=== PATIENT | male | born 1990 | race Caucasian/White ===

== ENCOUNTER 2017-08-26 09:12 | Emergency (ER) | payer OTHER ==
[~2017-08-26] VITALS: Ht 182.9 cm; Wt 81.7 kg
[~2017-08-26 09:12] MED LIST: Robaxin-750750 MG PO
[2017-08-26] MEDS ORDERED: AMIT25 PO (09:23)
[2017-08-26] MEDS ORDERED: Hydroxyzine HCl50 MG PO (09:23)
[2017-08-26] MEDS ORDERED: PRAZ1 PO (09:24)
[2017-08-26] MEDS ORDERED: IBUP800 PO (09:24)
[2017-08-26 10:08] LABS: BASOPHILS ABSOLUTE AUTO 0.04 K/mm3 (0.00-0.23); BASOPHILS PERCENT AUTO 1 % (0-2); EOSINOPHILS PERCENT AUTO 4 % (0-6); Hematocrit 37.9 % (37.0-53.0); IMMATURE GRAN ABSOLUTE AUTO 0.02 K/mm3 (0.00-0.10); IMMATURE GRAN PERCENT AUTO 0 % (0-1); LYMPHOCYTES PERCENT AUTO 24 % (21-46); MONOCYTES PERCENT AUTO 13 % (4-13); Mean Corpuscular HGB 29.8 pg (26.0-34.0); Mean Corpuscular HGB Conc 31.7 g/dL (31.5-36.5); Mean Corpuscular Volume 94 fL (80-100); Mean Platelet Volume 8.9 fL (9.1-12.4); NEUTROPHILS ABSOLUTE AUTO 4.19 K/mm3 (1.96-9.15); NEUTROPHILS PERCENT AUTO 59 % (41-73); Platelet Count 360 K/mm3 (150-400); RDW Coefficient Variation 13.9 % (11.7-14.2); RDW Standard Deviation 48.3 fL (35.1-46.3); Red Blood Cell Count 4.03 M/mm3 (4.30-5.90); White Blood Cell Count 7.15 K/mm3 (4.00-11.30)
[2017-08-26 10:33] LABS: Alanine Aminotransfer (ALT/SGP 41 U/L (12-78); Albumin, Blood 3.5 g/dL (3.4-5.0); Albumin/Globulin Ratio 1.1 (0.8-1.8); Alk Phos 81 U/L (50-136); Anion Gap 5 mmol/L (6-16); Aspartate Aminotrans (AST/SGOT 36 U/L (12-37); Bilirubin, Total 0.2 mg/dL (0.1-1.0); Blood Urea Nitrogen 10 mg/dL (8-24); Bun/Creatinine Ratio 11.5 (12.0-20.0); CO2, Blood 32 mmol/L (21-32); Calcium, Blood 9.1 mg/dL (8.5-10.1); Chloride, Blood 104 mmol/L (98-108); Creatinine, Blood 0.87 mg/dL (0.60-1.20); Globulin, Blood 3.2 g/dL (2.2-4.0); Glomerular Filtration Rate >60 (60-); Glucose, Blood 86 mg/dL (70-99); Potassium, Blood 4.3 mmol/L (3.5-5.5); Sodium, Blood 141 mmol/L (136-145); Total Protein, Blood 6.7 g/dL (6.4-8.2); Troponin I <0.015 ng/mL (0.000-0.040)
[2017-08-26] MEDS ORDERED: Lasix20 MG PO (10:56)
[2017-08-26] MEDS ORDERED: Monodox100 MG PO (10:56)
== END 2017-08-26 11:38 | disposition home or self-care (01) ==
LOC: ER 09:12
PROVIDERS: Emergency Medicine
DX: R60.0 Localized edema (principal); F15.11 Other stimulant abuse, in remission; F11.11 Opioid abuse, in remission; N34.2 Other urethritis; Z79.899 Other long term (current) drug therapy; Z87.891 Personal history of nicotine dependence
CPT/HCPCS: 36415; 71046; 80053; 83880; 84484; 85025; 93005; 93010; 96374; 99283; J1940

== ENCOUNTER 2017-09-14 14:04 | Emergency (ER) | payer OTHER ==
[~2017-09-14] VITALS: Ht 182.9 cm; Wt 79.4 kg
[~2017-09-14 14:04] MED LIST changes: +AMIT25 PO; +Hydroxyzine HCl50 MG PO; +IBUP800 PO; +Lasix20 MG PO; +Monodox100 MG PO; +PRAZ1 PO
[2017-09-14] MEDS ORDERED: TRAZ100 PO (14:25)
[2017-09-14] MEDS ORDERED: COMPRESSION STOCKING (14:37)
[2017-09-14] MEDS ORDERED: Mobic15 MG PO (14:37)
== END 2017-09-14 14:44 | disposition home or self-care (01) ==
LOC: ER 14:04
DX: M25.561 Pain in right knee (principal); M25.562 Pain in left knee; Z79.899 Other long term (current) drug therapy; Z87.891 Personal history of nicotine dependence
CPT/HCPCS: 99282

== ENCOUNTER 2017-10-13 09:27 | Emergency (ER) | payer OTHER ==
[~2017-10-13] VITALS: Ht 182.9 cm; Wt 74.6 kg
[~2017-10-13 09:27] MED LIST changes: +COMPRESSION STOCKING; +Mobic15 MG PO; +TRAZ100 PO
== END 2017-10-13 10:07 | disposition home or self-care (01) ==
LOC: ER 09:27
DX: J06.9 Acute upper respiratory infection, unspecified (principal); Z79.899 Other long term (current) drug therapy; Z87.442 Personal history of urinary calculi; Z87.891 Personal history of nicotine dependence
CPT/HCPCS: 99282

== ENCOUNTER 2017-10-31 14:16 | Emergency (ER) | payer OTHER ==
[~2017-10-31] VITALS: Ht 182.9 cm; Wt 77.1 kg
== END 2017-10-31 15:34 | disposition home or self-care (01) ==
LOC: ER 14:16
DX: S60.221A Contusion of right hand, initial encounter (principal); Z79.899 Other long term (current) drug therapy; Z87.442 Personal history of urinary calculi; Z87.891 Personal history of nicotine dependence; W18.30XA Fall on same level, unspecified, initial encounter
CPT/HCPCS: 73130; 99283

== ENCOUNTER 2019-04-27 23:24 | Emergency (ER) | payer OTHER ==
[~2019-04-27] VITALS: Ht 182.9 cm; Wt 72.6 kg
[2019-04-28 01:01] LABS: BASOPHILS ABSOLUTE AUTO 0.05 K/mm3 (0.00-0.23); BASOPHILS PERCENT AUTO 1 % (0-2); EOSINOPHILS ABSOLUTE AUTO 0.19 K/mm3 (0.00-0.68); EOSINOPHILS PERCENT AUTO 2 % (0-6); Hematocrit 40.7 % (37.0-53.0); Hemoglobin 13.3 g/dL (13.5-17.5); IMMATURE GRAN ABSOLUTE AUTO 0.03 K/mm3 (0.00-0.10); IMMATURE GRAN PERCENT AUTO 0 % (0-1); LYMPHOCYTES ABSOLUTE AUTO 1.86 K/mm3 (0.84-5.20); LYMPHOCYTES PERCENT AUTO 20 % (21-46); MONOCYTES ABSOLUTE AUTO 0.64 K/mm3 (0.16-1.47); MONOCYTES PERCENT AUTO 7 % (4-13); Mean Corpuscular HGB 30.5 pg (26.0-34.0); Mean Corpuscular HGB Conc 32.7 g/dL (31.5-36.5); Mean Corpuscular Volume 93 fL (80-100); NEUTROPHILS ABSOLUTE AUTO 6.64 K/mm3 (1.96-9.15); NEUTROPHILS PERCENT AUTO 71 % (41-73); RDW Coefficient Variation 13.7 % (11.7-14.2); RDW Standard Deviation 47.8 fL (35.1-46.3); Red Blood Cell Count 4.36 M/mm3 (4.30-5.90); White Blood Cell Count 9.41 K/mm3 (4.00-11.30)
[2019-04-28 01:03] LABS: Mean Platelet Volume 9.4 fL (9.1-12.4); Platelet Count 287 K/mm3 (150-400)
[2019-04-28 01:16] LABS: Alanine Aminotransfer (ALT/SGP 27 U/L (12-78); Albumin, Blood 4.1 g/dL (3.4-5.0); Albumin/Globulin Ratio 1.1 (0.8-1.8); Alk Phos 70 U/L (50-136); Anion Gap 7 mmol/L (6-16); Aspartate Aminotrans (AST/SGOT 10 U/L (12-37); Bilirubin, Total 0.1 mg/dL (0.1-1.0); Blood Urea Nitrogen 16 mg/dL (8-24); Bun/Creatinine Ratio 19.2 (12.0-20.0); CO2, Blood 30 mmol/L (21-32); Calcium, Blood 9.5 mg/dL (8.5-10.1); Chloride, Blood 108 mmol/L (98-108); Creatinine, Blood 0.83 mg/dL (0.60-1.20); Globulin, Blood 3.7 g/dL (2.2-4.0); Glomerular Filtration Rate >60 (60-); Glucose, Blood 100 mg/dL (70-99); Potassium, Blood 3.9 mmol/L (3.5-5.5); Sodium, Blood 145 mmol/L (136-145); Total Protein, Blood 7.8 g/dL (6.4-8.2)
[2019-04-28 02:17] LABS: Source, Urine Clean Catch
[2019-04-28 02:22] LABS: Bilirubin, Urine Neg (Neg); Blood, Urine 2+ (Neg); Glucose Qualitative, Urine Neg (Neg); Ketones, Urine Neg (Neg); Leukocyte Esterase, Urine Neg (Neg); Nitrite, Urine Neg (Neg); Protein, Urine Neg (Neg); Urobilinogen, Urine NORM (Normal)
[2019-04-28 02:34] LABS: Appearance, Urine Clear (Clear); Bacteria Rare /hpf; Color, Urine Yellow (P-Yellow); Mucus Light ({null, 0-Heavy}); Squamous Epithelial Cells Rare /hpf (Few); White Blood Cells, Urine Rare /hpf (0-5)
[2019-04-28] MEDS ORDERED: ONDA4ODT MM (05:31)
[2019-04-28] MEDS ORDERED: Prilosec Otc20 MG PO (05:31)
[2019-04-28] MEDS ORDERED: Carafate1 GM/10 ML PO (05:31)
== END 2019-04-28 05:53 | disposition home or self-care (01) ==
LOC: ER 23:24
PROVIDERS: Emergency Medicine
DX: R10.11 Right upper quadrant pain (principal); F17.210 Nicotine dependence, cigarettes, uncomplicated; Z87.442 Personal history of urinary calculi
CPT/HCPCS: 76705; 80053; 81001; 83690; 85025; 96374; 99284-25; J2270

== ENCOUNTER 2019-05-13 22:03 | Inpatient (IN) | payer OTHER ==
[~2019-05-13] VITALS: Ht 185.4 cm; Wt 69.2 kg
[~2019-05-13 22:03] MED LIST changes: +Carafate1 GM/10 ML PO; +ONDA4ODT MM; +Prilosec Otc20 MG PO
[2019-05-13 22:57] LABS: BASOPHILS ABSOLUTE AUTO 0.09 K/mm3 (0.00-0.23); BASOPHILS PERCENT AUTO 1 % (0-2); EOSINOPHILS ABSOLUTE AUTO 0.08 K/mm3 (0.00-0.68); EOSINOPHILS PERCENT AUTO 1 % (0-6); Hematocrit 45.1 % (37.0-53.0); Hemoglobin 14.9 g/dL (13.5-17.5); IMMATURE GRAN ABSOLUTE AUTO 0.11 K/mm3 (0.00-0.10); IMMATURE GRAN PERCENT AUTO 1 % (0-1); LYMPHOCYTES ABSOLUTE AUTO 2.05 K/mm3 (0.84-5.20); LYMPHOCYTES PERCENT AUTO 14 % (21-46); MONOCYTES PERCENT AUTO 8 % (4-13); Mean Corpuscular HGB 29.7 pg (26.0-34.0); Mean Corpuscular Volume 90 fL (80-100); Mean Platelet Volume 9.2 fL (9.1-12.4); NEUTROPHILS ABSOLUTE AUTO 11.08 K/mm3 (1.96-9.15); NEUTROPHILS PERCENT AUTO 76 % (41-73); Platelet Count 494 K/mm3 (150-400); RDW Coefficient Variation 14.5 % (11.7-14.2); RDW Standard Deviation 48.4 fL (35.1-46.3); Red Blood Cell Count 5.01 M/mm3 (4.30-5.90); White Blood Cell Count 14.61 K/mm3 (4.00-11.30)
[2019-05-13 23:18] LABS: Albumin/Globulin Ratio 1.1 (0.8-1.8); Bilirubin, Total 0.7 mg/dL (0.1-1.0); Calcium, Blood 10.5 mg/dL (8.5-10.1); Creatinine, Blood 2.37 mg/dL (0.60-1.20); Globulin, Blood 4.5 g/dL (2.2-4.0); Magnesium, Blood 2.9 mg/dL (1.6-2.4); Potassium, Blood 6.8 mmol/L (3.5-5.5); Total Protein, Blood 9.5 g/dL (6.4-8.2)
[2019-05-14 01:30] LABS: Creatine Kinase MB Index 1.2 (0.0-4.0)
[2019-05-14 02:11] LABS: Bun/Creatinine Ratio 20.1 (12.0-20.0); Calcium, Blood 9.4 mg/dL (8.5-10.1); Creatinine, Blood 1.94 mg/dL (0.60-1.20); Potassium, Blood 4.5 mmol/L (3.5-5.5)
[2019-05-14 02:30] LABS: Source, Urine Clean Catch
[2019-05-14 02:33] LABS: Appearance, Urine Clear (Clear); Bilirubin, Urine Neg (Neg); Blood, Urine 1+ (Neg); Color, Urine Amber (P-Yellow); Glucose Qualitative, Urine Neg (Neg); Ketones, Urine 3+ (Neg); Leukocyte Esterase, Urine 1+ (Neg); Nitrite, Urine Neg (Neg); Protein, Urine 1+ (Neg); Urobilinogen, Urine NORM (Normal)
[2019-05-14 02:39] LABS: Bacteria Many /hpf; Calcium Oxalate Crystals Few /hpf; Squamous Epithelial Cells Not Seen /hpf (Few)
[2019-05-14 02:42] LABS: U Amphetamine Screen DETECTED; U Barbituate Screen Not Detected; U Benzodiazapine Screen Not Detected; U Methamphetamine Screen DETECTED
[2019-05-14 02:43] LABS: U Buprenorphine Screen DETECTED; U Cannabinoids Screen Not Detected; U Cocaine Screen Not Detected; U Methadone Screen Not Detected; U Opiates Screen Not Detected; U Oxycodone Screen Not Detected; U Phencyclidine Screen Not Detected; U Propoxyphene Screen Not Detected
[2019-05-14] MEDS ORDERED: SUBOXONE 8 MG-1 EACH SL (05:13)
[2019-05-14 05:14] LABS: Bun/Creatinine Ratio 20.4 (12.0-20.0); Calcium, Blood 9.4 mg/dL (8.5-10.1); Creatinine, Blood 1.67 mg/dL (0.60-1.20); Potassium, Blood 4.8 mmol/L (3.5-5.5)
--- NOTE | 2019-05-14 06:44 | NUR ---
SHIFT SUMMARY NO SIGNIFICANT EVENTS OVERNIGHT. PT IS ALERT AND ORIENTED X 4. PT REPORTS NO ABDOMINAL PAIN SINCE ADMISSION TO ICU, OR NAUSEA. STATES RELIEF FROM PAIN IN HIS LEG/FOOT PAIN. HE IS ON SUBOXONE AFTER DETOXING IN REHAB, STATES HE PLANS TO GET ON METHADONE NEXT WEEK. PT IS ANXIOUS TO LEAVE ICU. HE VOIDED 350ML INTO URINAL, CLOUDY DARKISH YELLOW. NO BM OVERNIGHT. IS IN RECLINDER NEAR BED. THEY ARE HOMELESS, I PUT IN A VIDEO CLERK CONSULT FOR THEM. BED IS LOW AND LOCKED. CALL LIGHT WITHIN REACH.
[2019-05-14 08:33] LABS: Hemoglobin 12.2 g/dL (13.5-17.5); Mean Corpuscular HGB 29.7 pg (26.0-34.0); Mean Corpuscular HGB Conc 33.9 g/dL (31.5-36.5); Mean Corpuscular Volume 88 fL (80-100); Mean Platelet Volume 9.3 fL (9.1-12.4); Platelet Count 315 K/mm3 (150-400); RDW Coefficient Variation 14.8 % (11.7-14.2); RDW Standard Deviation 47.6 fL (35.1-46.3); Red Blood Cell Count 4.11 M/mm3 (4.30-5.90); White Blood Cell Count 8.66 K/mm3 (4.00-11.30)
[2019-05-14 08:57] LABS: Alanine Aminotransfer (ALT/SGP 48 U/L (12-78); Albumin, Blood 3.5 g/dL (3.4-5.0); Alk Phos 80 U/L (50-136); Anion Gap 7 mmol/L (6-16); Aspartate Aminotrans (AST/SGOT 40 U/L (12-37); Bilirubin, Total 0.5 mg/dL (0.1-1.0); Blood Urea Nitrogen 28 mg/dL (8-24); Bun/Creatinine Ratio 20.3 (12.0-20.0); CO2, Blood 24 mmol/L (21-32); Chloride, Blood 106 mmol/L (98-108); Creatinine, Blood 1.38 mg/dL (0.60-1.20); Globulin, Blood 3.5 g/dL (2.2-4.0); Glomerular Filtration Rate >60 (60-); Glucose, Blood 111 mg/dL (70-99); Potassium, Blood 4.7 mmol/L (3.5-5.5); Sodium, Blood 137 mmol/L (136-145)
--- NOTE | 2019-05-14 09:50 | NUR ---
CARE ASSUMED, ASSESSMENT COMPLETED. PT DENIES NAUSEA, SOB AND CHEST PAIN, REPORTS BLE PAIN/SORENESS, STATES HE HAS WALKED A LOT THE PAST FEW DAYS, ATTRIBUTES PAIN TO THIS ACTIVITY. HR 100-110 SIT, OTHER VSS. PT VOIDING CLEAR YELLOW URINE, 675ML OUT AT THIS TIME, NS INFUSING AT 150ML/HR PER ORDERS. PT ALERT AND ORIENTED, SLIGHTLY IRRITABLE AND HYPERACTIVE BUT COOPERATIVE WITH CARE. DR. GEE IN TO SEE PATIENT, NEW ORDERS, BREAKFAST TRAY GIVEN. PT TOLERATING P.O. WELL. STATUS CHANGED TO MEDICAL WITH TELE. PT DENIES NEEDS, AT BEDSIDE.
--- NOTE | 2019-05-14 12:18 | NUR ---
AMA PT. IN ROOM FULL DRESSED AND PACKING BACK PACK. PT. STATES "I HAD A FAMILY EMERGENCY I HAVE TO GO". PT HAD REMOVED HIS IVS. ENCOURAGED PT TO STAY IN HOSPITAL DUE TO RENAL FUNCTION. PT. STATES "I KNOW BUT I HAVE TO GO SORRY". NOTIFIED PT THAT IF HE WAS TO LEAVE HE WOULD NEED TO SIGN AN AMA FORM. PT AGREED TO SIGN FORM, RISKS DISCUSSED WITH PT WELL BENEFITS OF STAYING. PT. SIGNED AMA FORMS AND LEFT WITH SIGNIFICANT OTHER AND ALL BELONGINGS.
== END 2019-05-14 12:00 | disposition left against medical advice (07) | DRG 683 ==
LOC: ER 22:03 → ICUW 05-14 00:15
PROVIDERS: Emergency Medicine; ADMIT Internal Medicine
DX: N17.9 Acute kidney failure, unspecified (principal); M62.82 Rhabdomyolysis; E87.5 Hyperkalemia; E83.52 Hypercalcemia; F19.10 Other psychoactive substance abuse, uncomplicated; F17.210 Nicotine dependence, cigarettes, uncomplicated
CPT/HCPCS: 36415; 80048; 80053; 81001; 82550; 82553; 83690; 83735; 85025; 85027; 87040; 87086; 93005; 93010; 94644; 96361; 96365; 96375; 99285-25; J0610; J1644; J1815; J1885; J2405; J7030; J7799

== ENCOUNTER 2019-05-16 16:01 | Observation (INO) | payer OTHER ==
[~2019-05-16] VITALS: Ht 185.4 cm; Wt 72.6 kg
[~2019-05-16 16:01] MED LIST changes: +SUBOXONE 8 MG-1 EACH SL
[2019-05-16 17:53] LABS: BASOPHILS ABSOLUTE AUTO 0.08 K/mm3 (0.00-0.23); BASOPHILS PERCENT AUTO 1 % (0-2); EOSINOPHILS ABSOLUTE AUTO 0.46 K/mm3 (0.00-0.68); EOSINOPHILS PERCENT AUTO 4 % (0-6); Hematocrit 35.5 % (37.0-53.0); Hemoglobin 12.1 g/dL (13.5-17.5); IMMATURE GRAN ABSOLUTE AUTO 0.02 K/mm3 (0.00-0.10); IMMATURE GRAN PERCENT AUTO 0 % (0-1); LYMPHOCYTES ABSOLUTE AUTO 2.66 K/mm3 (0.84-5.20); LYMPHOCYTES PERCENT AUTO 24 % (21-46); MONOCYTES ABSOLUTE AUTO 1.46 K/mm3 (0.16-1.47); MONOCYTES PERCENT AUTO 13 % (4-13); Mean Corpuscular HGB 30.2 pg (26.0-34.0); Mean Corpuscular HGB Conc 34.1 g/dL (31.5-36.5); Mean Corpuscular Volume 89 fL (80-100); Mean Platelet Volume 9.2 fL (9.1-12.4); NEUTROPHILS ABSOLUTE AUTO 6.62 K/mm3 (1.96-9.15); NEUTROPHILS PERCENT AUTO 59 % (41-73); Platelet Count 398 K/mm3 (150-400); RDW Coefficient Variation 13.7 % (11.7-14.2); RDW Standard Deviation 45.1 fL (35.1-46.3); Red Blood Cell Count 4.01 M/mm3 (4.30-5.90)
[2019-05-16 18:21] LABS: Alanine Aminotransfer (ALT/SGP 57 U/L (12-78); Albumin, Blood 4.1 g/dL (3.4-5.0); Albumin/Globulin Ratio 1.1 (0.8-1.8); Alk Phos 98 U/L (50-136); Anion Gap 5 mmol/L (6-16); Aspartate Aminotrans (AST/SGOT 61 U/L (12-37); Bilirubin, Total 0.9 mg/dL (0.1-1.0); Blood Urea Nitrogen 42 mg/dL (8-24); Bun/Creatinine Ratio 36.5 (12.0-20.0); CO2, Blood 23 mmol/L (21-32); Calcium, Blood 9.7 mg/dL (8.5-10.1); Chloride, Blood 105 mmol/L (98-108); Creatinine, Blood 1.15 mg/dL (0.60-1.20); Globulin, Blood 3.7 g/dL (2.2-4.0); Glomerular Filtration Rate >60 (60-); Glucose, Blood 105 mg/dL (70-99); Magnesium, Blood 2.6 mg/dL (1.6-2.4); Phosphorus, Blood 2.8 mg/dL (2.5-4.9); Potassium, Blood 3.6 mmol/L (3.5-5.5); Sodium, Blood 133 mmol/L (136-145); Total Protein, Blood 7.8 g/dL (6.4-8.2)
[2019-05-16] MEDS ORDERED: METH10 PO (18:58)
[2019-05-16 19:28] LABS: Source, Urine Voided
[2019-05-16 19:33] LABS: Bilirubin, Urine Neg (Neg); Blood, Urine 1+ (Neg); Glucose Qualitative, Urine Neg (Neg); Ketones, Urine Neg (Neg); Leukocyte Esterase, Urine Neg (Neg); Nitrite, Urine Neg (Neg); Protein, Urine Neg (Neg); Specific Gravity, Urine 1.025 (1.003-1.022); Urobilinogen, Urine NORM (Normal)
[2019-05-16 19:46] LABS: U Amphetamine Screen DETECTED; U Buprenorphine Screen DETECTED; U Methamphetamine Screen DETECTED
[2019-05-16 19:47] LABS: Appearance, Urine Clear (Clear); Color, Urine Yellow (P-Yellow); U Barbituate Screen Not Detected; U Benzodiazapine Screen Not Detected; U Cannabinoids Screen Not Detected; U Cocaine Screen Not Detected; U Methadone Screen DETECTED; U Opiates Screen Not Detected; U Oxycodone Screen Not Detected; U Phencyclidine Screen Not Detected; U Propoxyphene Screen Not Detected
[2019-05-16 19:48] LABS: Creatine Kinase MB 18.2 ng/mL (0.0-3.6); Creatine Kinase MB Index 1.5 (0.0-4.0)
[2019-05-16 19:49] LABS: Bacteria Not Seen /hpf; Red Blood Cells, Urine 0-2 /hpf (0-2); Squamous Epithelial Cells Not Seen /hpf (Few); White Blood Cells, Urine 0-2 /hpf (0-5)
[2019-05-16] MEDS ORDERED: OMEPRAZOLE20 MG PO (20:48)
[2019-05-16] MEDS ORDERED: ONDA4 PO (20:48)
[2019-05-16] MEDS ORDERED: ALBU90OI INH (20:49)
[2019-05-16] MEDS ORDERED: TUMS500 MG PO (20:49)
[2019-05-17] MEDS ORDERED: SUCR1 PO (00:39)
--- NOTE | 2019-05-17 04:47 | NUR ---
SHIFT SUMMARY: PATIENT ARRIVED TO THE FLOOR AROUND MIDNIGHT. HE CAME BY [place], WAS SLIGHTLY COHERENT, ABLE TO TRANSFER WITH TRANSFER SHEET. BUT LAYS THERE WITH UNRESPONSIVENESS WHEN SPOKEN TO AT FIRST. THEN ONCE YOU CONTINUE TO PRESS ON HIM TO TALK OR ANSWER QUESTIONS THEN HE WOULD OPEN HIS EYES AND START THRASHING AROUND IN THE BED, LIKE HE IS HAVING TROUBLE STAYING STILL. EYES ARE PINPOINT AND IS SENSITIVE TO LIGHT. HE DOES NOT REALLY SPEAK HE IS WITHDRAWING FROM STAFF LIKE HE DOES NOT REALLY WANT TO ANSWER OR HAVE THEM LOOK AT HIM. HE IS ABLE TO UNDERSTAND SOME OF THE CONVERSATIONS BUT HE REALLY APPEARS TO BE ON SOMETHING, ADMISSION NOTE STATES DRUG USE. GIRLFRIEND AT SIDE ACTS IN THE SAME MANNER. HE EVEN WHEN TOLD ABOUT MEDICATION WILL ACT LIKE HE IS ABLIVENT TO WHAT IS GOING ON AROUND HIM WHILE MOANING IF HE EVEN GETS TOUCH. HOOKED UP HIS IV AND GAVE HIM THE LOVENOX INJECTION WHICH HAD TO HOLD HIM SO HE WOULD NOT HIT MY HAND WHILE GIVING THE SHOT. LATER HE WOKE UP SITTING ON SIDE OF BED BUT WOULD NOT LOOK OR INTERACT WITH ME. WENT TO THE BATHROOM AND BACK TO BED. HE DID NOT COMPLAIN OF PAIN OR DISCOMFORT OR REPORTS ANY OTHER CONCERNS. CALL LIGHT REMAINED IN REACH. WILL REPORT TO DAY SHIFT RN.
[2019-05-17 06:11] LABS: CPK Creatine Kinase 604 U/L (39-308)
[2019-05-17 06:20] LABS: Alanine Aminotransfer (ALT/SGP 42 U/L (12-78); Albumin/Globulin Ratio 1.1 (0.8-1.8); Alk Phos 76 U/L (50-136); Aspartate Aminotrans (AST/SGOT 41 U/L (12-37); Bilirubin, Total 0.7 mg/dL (0.1-1.0); Blood Urea Nitrogen 20 mg/dL (8-24); Bun/Creatinine Ratio 26.3 (12.0-20.0); CO2, Blood 21 mmol/L (21-32); Chloride, Blood 114 mmol/L (98-108); Creatinine, Blood 0.76 mg/dL (0.60-1.20); Globulin, Blood 2.8 g/dL (2.2-4.0); Glomerular Filtration Rate >60 (60-); Glucose, Blood 86 mg/dL (70-99); Potassium, Blood 3.5 mmol/L (3.5-5.5)
[2019-05-17 06:21] LABS: Anion Gap 8 mmol/L (6-16); Calcium, Blood 7.7 mg/dL (8.5-10.1); Sodium, Blood 143 mmol/L (136-145); Total Protein, Blood 5.8 g/dL (6.4-8.2)
[2019-05-17 06:24] LABS: Hematocrit 30.9 % (37.0-53.0); Hemoglobin 10.2 g/dL (13.5-17.5); Mean Corpuscular HGB 30.2 pg (26.0-34.0); Mean Corpuscular Volume 91 fL (80-100); Mean Platelet Volume 9.1 fL (9.1-12.4); Platelet Count 263 K/mm3 (150-400); RDW Standard Deviation 47.6 fL (35.1-46.3); Red Blood Cell Count 3.38 M/mm3 (4.30-5.90)
[2019-05-17 06:42] LABS: Creatine Kinase MB 10.2 ng/mL (0.0-3.6); Creatine Kinase MB Index 1.7 (0.0-4.0)
--- NOTE | 2019-05-17 18:05 | NUR ---
PT. WAS GIVEN DISCHARGE INSTRUCTIONS AND STATED HE UNDERSTOOD THEM. WHEN PT. LEFT HE LEFT THE INSTRUCTIONS IN THE ROOM FOLDER AND ALL.
--- NOTE | 2019-05-17 18:05 | NUR ---
PTAryan SLEPT ALL DAY LONG, DISCHARGED HIM HOME ON MEDS HE CAME IN WITH.
== END 2019-05-17 18:10 | disposition home or self-care (01) ==
LOC: ER 16:01 → MEDS 16:02 → ER 20:18 → MEDS 23:40 → ENPENDDIS 05-17 12:42 → MEDS 05-17 18:10
PROVIDERS: Physician Assistant; ADMIT Internal Medicine
DX: M62.82 Rhabdomyolysis (principal); F19.10 Other psychoactive substance abuse, uncomplicated; E86.0 Dehydration; Z79.899 Other long term (current) drug therapy; Z87.442 Personal history of urinary calculi; Z87.81 Personal history of (healed) traumatic fracture
CPT/HCPCS: 36415; 80053; 81001; 82550; 82553; 83735; 83874; 83970; 84100; 85025; 85027; 93005; 93010; 96360; 96361; 99285-25; G0378; J1650; J2060; J7030

== ENCOUNTER 2019-09-30 10:18 | Emergency (ER) | payer OTHER ==
[~2019-09-30] VITALS: Ht 185.4 cm; Wt 74.8 kg
[~2019-09-30 10:18] MED LIST changes: +ALBU90OI INH; +METH10 PO; +OMEPRAZOLE20 MG PO; +ONDA4 PO; +SUCR1 PO; +TUMS500 MG PO
[2019-09-30] MEDS ORDERED: METH10 PO (10:29)
[2019-09-30] MEDS ORDERED: Mobic15 MG PO (11:07)
[2019-09-30] MEDS ORDERED: Prednisone20 MG PO (11:07)
== END 2019-09-30 11:15 | disposition home or self-care (01) ==
LOC: ER 10:18
DX: M10.9 Gout, unspecified (principal); F17.210 Nicotine dependence, cigarettes, uncomplicated; Z79.899 Other long term (current) drug therapy
CPT/HCPCS: 99282

== ENCOUNTER 2021-12-26 20:54 | Emergency (ER) | payer OTHER ==
[~2021-12-26] VITALS: Ht 182.9 cm; Wt 97.5 kg
[~2021-12-26 20:54] MED LIST changes: +Prednisone20 MG PO
== END 2021-12-26 21:59 | disposition home or self-care (01) ==
LOC: ER 20:54
DX: S51.812A Laceration without foreign body of left forearm, initial encounter (principal); W20.8XXA Other cause of strike by thrown, projected or falling object, initial encounter; Z79.899 Other long term (current) drug therapy
CPT/HCPCS: 12002; 99282-25

== ENCOUNTER 2022-05-01 08:35 | Emergency (ER) | payer OTHER ==
[~2022-05-01] VITALS: Ht 185.4 cm; Wt 102.1 kg
[2022-05-01] MEDS ORDERED: SUBOXONE 8 MG-1 EACH SL (09:38)
[2022-05-01 11:07] LABS: Albumin, Blood 3.9 g/dL (3.4-5.0); Albumin/Globulin Ratio 0.9 (0.8-1.8); Bilirubin, Total 0.2 mg/dL (0.1-1.0); Bun/Creatinine Ratio 11.7 (12.0-20.0); Calcium, Blood 9.2 mg/dL (8.5-10.1); Creatinine, Blood 0.85 mg/dL (0.60-1.20); Globulin, Blood 4.2 g/dL (2.2-4.0); Total Protein, Blood 8.1 g/dL (6.4-8.2)
[2022-05-01 11:59] LABS: BASOPHILS ABSOLUTE AUTO 0.08 K/mm3 (0.00-0.23); BASOPHILS PERCENT AUTO 1 % (0-2); EOSINOPHILS ABSOLUTE AUTO 0.33 K/mm3 (0.00-0.68); EOSINOPHILS PERCENT AUTO 4 % (0-6); Hematocrit 40.6 % (37.0-53.0); Hemoglobin 14.3 g/dL (13.5-17.5); IMMATURE GRAN ABSOLUTE AUTO 0.03 K/mm3 (0.00-0.10); IMMATURE GRAN PERCENT AUTO 0 % (0-1); LYMPHOCYTES ABSOLUTE AUTO 3.28 K/mm3 (0.84-5.20); LYMPHOCYTES PERCENT AUTO 35 % (21-46); MONOCYTES ABSOLUTE AUTO 0.96 K/mm3 (0.16-1.47); MONOCYTES PERCENT AUTO 10 % (4-13); Mean Corpuscular HGB 29.4 pg (26.0-34.0); Mean Corpuscular HGB Conc 35.2 g/dL (31.5-36.5); Mean Corpuscular Volume 84 fL (80-100); Mean Platelet Volume 9.6 fL (9.1-12.4); NEUTROPHILS ABSOLUTE AUTO 4.62 K/mm3 (1.96-9.15); NEUTROPHILS PERCENT AUTO 50 % (41-73); Platelet Count 291 K/mm3 (150-400); RDW Coefficient Variation 11.9 % (11.7-14.2); RDW Standard Deviation 36.2 fL (35.1-46.3); Red Blood Cell Count 4.86 M/mm3 (4.30-5.90)
[2022-05-01] MEDS ORDERED: ONDA4ODT MM (12:50)
[2022-05-01] MEDS ORDERED: OMEP20ER PO (12:50)
== END 2022-05-01 13:03 | disposition home or self-care (01) ==
LOC: ER 08:35
PROVIDERS: Emergency Medicine
DX: R10.11 Right upper quadrant pain (principal); F17.210 Nicotine dependence, cigarettes, uncomplicated
CPT/HCPCS: 36415; 76705; 80053; 83690; 85025; J1885; J2405; J7030